=== PATIENT | female | born 1985 | race Caucasian/White ===

== ENCOUNTER 2020-11-27 15:59 | Emergency (ER) | payer OTHER ==
[2020-11-27 16:47] LABS: HEMOGLOBIN 13.7 gm/dl (12.3-15.3); RED BLOOD COUNT 4.3 M/UL (4.00-5.10); WHITE BLOOD COUNT 13.6 K/UL (4.5-11.0)
[2020-11-27] MEDS ORDERED: HYDROCODON-ACE1 EAC4 PO (18:29)
== END 2020-11-27 18:50 | disposition home or self-care (01) ==
LOC: ER1 15:59
PROVIDERS: Emergency Medicine
DX: N13.2 Hydronephrosis with renal and ureteral calculous obstruction (principal); E11.9 Type 2 diabetes mellitus without complications; Z87.442 Personal history of urinary calculi; Z88.0 Allergy status to penicillin
CPT/HCPCS: 80053; 81001; 84703; 85025; 96374; 96375; 99284; J1885; J2270; J2405

== ENCOUNTER 2020-11-29 16:59 | Observation (INO) | payer OTHER ==
[~2020-11-29] VITALS: Ht 167.6 cm; Wt 122.5 kg
[~2020-11-29 16:59] MED LIST: HYDROCODON-ACE1 EAC4 PO
[2020-11-29 18:31] LABS: HEMOGLOBIN 13.3 gm/dl (12.3-15.3); RED BLOOD COUNT 4.21 M/UL (4.00-5.10); WHITE BLOOD COUNT 9.2 K/UL (4.5-11.0)
[2020-11-29] MEDS ORDERED: IBUPROFEN800 MG PO (20:56)
[2020-11-29] MEDS ORDERED: EFFEXOR XR 150150 MG PO (20:57)
[2020-11-29] MEDS ORDERED: AMBIEN10 MG PO (20:58)
[2020-11-29] MEDS ORDERED: TOPROL XL50 MG PO (20:58)
[2020-11-29] MEDS ORDERED: NEURONTIN600 MG PO (20:58)
[2020-11-29] MEDS ORDERED: ZOCOR20 MG PO (20:59)
[2020-11-29] MEDS ORDERED: GLUCOPHAGE500 MG PO (20:59)
[2020-11-29] MEDS ORDERED: VISTARIL 25 MG25 MG PO (21:00)
[2020-11-29] MEDS ORDERED: HYDROCHLOROTHIA25 MG PO (21:01)
[2020-11-29] MEDS ORDERED: TRAZODONE HCL100 MG PO (21:01)
[2020-11-29] MEDS ORDERED: CLARITIN10 M2 PO (21:02)
[2020-11-30 04:34] LABS: HEMOGLOBIN 11.9 gm/dl (12.3-15.3); RED BLOOD COUNT 3.82 M/UL (4.00-5.10)
--- NOTE | 2020-11-30 10:51 | NUR ---
REPORTED TO DR. POWER PATIENT PAIN NOT RESOLVED WITH MORPHINE AND HYDROCODONE. ACKNOWLEDGE AND VERB WILL ORDER MEDICINE
[2020-12-01] MEDS ORDERED: FLOMAX 0.4 MG0.4 MG PO (11:04)
[2020-12-01] MEDS ORDERED: VISTARIL 25 MG25 MG PO (11:04)
[2020-12-01] MEDS ORDERED: ROXICODONE TAB 55 MG PO (11:04)
[2020-12-01] MEDS ORDERED: ZOFRAN4 MG PO (12:39)
== END 2020-12-01 17:03 | disposition home or self-care (01) ==
LOC: ER1 16:59 → CDU 20:49 → M/S 20:49
PROVIDERS: Emergency Medicine; ADMIT Internal Medicine
DX: N13.2 Hydronephrosis with renal and ureteral calculous obstruction (principal); N17.9 Acute kidney failure, unspecified; E11.9 Type 2 diabetes mellitus without complications; I10 Essential (primary) hypertension; G43.909 Migraine, unspecified, not intractable, without status migrainosus; F41.9 Anxiety disorder, unspecified; F43.10 Post-traumatic stress disorder, unspecified; F32.9 Major depressive disorder, single episode, unspecified; E66.01 Morbid (severe) obesity due to excess calories; Z68.41 Body mass index [BMI] 40.0-44.9, adult; Z79.84 Long term (current) use of oral hypoglycemic drugs; Z79.899 Other long term (current) drug therapy; Z88.0 Allergy status to penicillin; Z20.822 Contact with and (suspected) exposure to COVID-19
CPT/HCPCS: 36415; 74018; 80048; 80053; 81001; 82962; 83605; 85025; 86140; 87086; 96374; 96375; 96376; 99284; G0378; J0696; J1170; J1650; J1885; J2270; J2405; J7030; U0002

== ENCOUNTER 2020-12-05 17:20 | Emergency (ER) | payer OTHER ==
[~2020-12-05 17:20] MED LIST changes: +AMBIEN10 MG PO; +CLARITIN10 M2 PO; +EFFEXOR XR 150150 MG PO; +FLOMAX 0.4 MG0.4 MG PO; +GLUCOPHAGE500 MG PO; +HYDROCHLOROTHIA25 MG PO; +IBUPROFEN800 MG PO; +NEURONTIN600 MG PO; +ROXICODONE TAB 55 MG PO; +TOPROL XL50 MG PO; +TRAZODONE HCL100 MG PO; +VISTARIL 25 MG25 MG PO; +ZOCOR20 MG PO; +ZOFRAN4 MG PO
[2020-12-05 18:11] LABS: RED BLOOD COUNT 4.44 M/UL (4.00-5.10); WHITE BLOOD COUNT 11.4 K/UL (4.5-11.0)
[2020-12-05 18:12] LABS: HEMOGLOBIN 14.1 gm/dl (12.3-15.3)
[2020-12-05 18:42] LABS: BUN/CREATININE RATIO 10 (0-10)
[2020-12-05] MEDS ORDERED: ZOFRAN ODT 4 MG4 MG SL (20:28)
[2020-12-05] MEDS ORDERED: ENDOCET 5-3251 EACH PO (20:28)
== END 2020-12-05 21:08 | disposition home or self-care (01) ==
LOC: ER1 17:20
PROVIDERS: Family Medicine
DX: N13.2 Hydronephrosis with renal and ureteral calculous obstruction (principal); Z88.0 Allergy status to penicillin; Z87.442 Personal history of urinary calculi
CPT/HCPCS: 80053; 81001; 83690; 84703; 85025; 96374; 96375; 99284; J1885; J2270; J2405

== ENCOUNTER 2021-01-22 16:11 | Emergency (ER) | payer OTHER ==
[~2021-01-22 16:11] MED LIST changes: +ENDOCET 5-3251 EACH PO; +ZOFRAN ODT 4 MG4 MG SL
[2021-01-22 17:30] LABS: HEMOGLOBIN 15.3 gm/dl (12.3-15.3); RED BLOOD COUNT 4.87 M/UL (4.00-5.10); WHITE BLOOD COUNT 13.6 K/UL (4.5-11.0)
[2021-01-22 18:20] LABS: BUN/CREATININE RATIO 10 (0-10)
[2021-01-22] MEDS ORDERED: ZOFRAN4 MG PO (18:34)
== END 2021-01-22 19:25 | disposition home or self-care (01) ==
LOC: ER1 16:11
PROVIDERS: Emergency Medicine
DX: E87.6 Hypokalemia (principal); R11.2 Nausea with vomiting, unspecified
CPT/HCPCS: 71045; 80053; 81001; 82009; 82550; 82553; 83605; 83690; 83735; 83874; 84484; 84703; 85025; 85379; 87040; 93005; 96374; 99284; J2405

== ENCOUNTER 2021-11-23 11:48 | Emergency (ER) | payer OTHER ==
[2021-11-23 12:59] LABS: HEMOGLOBIN 13.1 gm/dl (12.3-15.3); RED BLOOD COUNT 4.36 M/UL (4.00-5.10)
[2021-11-23 13:14] LABS: BUN/CREATININE RATIO 16 (0-10)
[2021-11-23] MEDS ORDERED: MACROBID 100 M100 MG PO (18:01)
== END 2021-11-23 18:23 | disposition home or self-care (01) ==
LOC: ER1 11:48
PROVIDERS: Emergency Medicine
DX: R07.2 Precordial pain (principal); N39.0 Urinary tract infection, site not specified
CPT/HCPCS: 71045; 80053; 81001; 82550; 82553; 84484; 85025; 87077; 87086; 87186; 93005; 99285

== ENCOUNTER → 2021-12-02 | Outpatient (CLI) | payer OTHER ==
[~2021-12-02] MED LIST changes: +MACROBID 100 M100 MG PO
== END ==
LOC: RAD 13:13
DX: M54.42 Lumbago with sciatica, left side (principal); R10.2 Pelvic and perineal pain
CPT/HCPCS: 72100; 72170

== ENCOUNTER → 2022-03-22 | Outpatient (CLI) | payer OTHER | LOC: KOH-I 14:49 | DX: M54.42 Lumbago with sciatica, left side (principal) | CPT/HCPCS: 72100 ==

== ENCOUNTER → 2022-05-07 | Outpatient (CLI) | payer OTHER | LOC: SLEEP 08:38 | DX: G47.33 Obstructive sleep apnea (adult) (pediatric) (principal) | CPT/HCPCS: 95810 ==

== ENCOUNTER → 2022-05-10 | Outpatient (CLI) | payer OTHER | LOC: KOH-I 09:08 | DX: M25.561 Pain in right knee (principal) | CPT/HCPCS: 73562 ==